=== PATIENT | male | born 1995 | race Caucasian/White ===

== ENCOUNTER 2018-10-04 23:07 | Emergency (ER) | payer OTHER ==
[~2018-10-04] VITALS: Ht 180.3 cm; Wt 59.0 kg
[2018-10-04 23:21] VITALS: BP 138/66
[2018-10-05] MEDS ORDERED: NAPROSYN500 MG PO (00:01)
[2018-10-05] MEDS ORDERED: NORFLEX100 MG PO (00:12)
--- NOTE | 2018-10-05 09:20 | EKG ---
[place] [address] [employer] [place] [address] ELECTROCARDIOGRAM REPORT Name: COLUMBA MARLOW [id number] Admission: 10/04/18 Attend Phys: Discharge: 10/05/18 Date of : [birth year] Report #: [id number] THIS REPORT FOR: //name// [facility] ED Test Date: 2018-10-04 Test Time: 23:32:37 Pat Name: COLUMBA MARLOW Department: Room: Gender: M Electric Plater: TK : 1995 Requested By: Alton Olsen Order Number: [id number] MD: Rob Finnegan Measurements Intervals [place] Rate: 71 P: 53 WI: 133 QRS: 54 QRSD: 93 T: 33 QT: 388 QTc: 422 Interpretive Statements Sinus rhythm ST elev, probable normal early repol pattern No previous ECG available for comparison Electronically Signed On 10-05-2018 9:20:42 PRESS HELPER by Rob Finnegan [email or web address] <ELECTRONICALLY SIGNED> By: Rob Finnegan MD, [facility] 10/05/18 0920 2332 2332 Rob Finnegan MD, FACC /EPI
== END 2018-10-05 00:20 | disposition home or self-care (01) ==
LOC: ER 23:07
DX: M94.0 Chondrocostal junction syndrome [Tietze] (principal); F17.210 Nicotine dependence, cigarettes, uncomplicated

== ENCOUNTER 2019-04-11 05:11 | Emergency (ER) | payer OTHER ==
[~2019-04-11] VITALS: Ht 180.3 cm; Wt 62.1 kg
[~2019-04-11 05:11] MED LIST: NAPROSYN500 MG PO; NORFLEX100 MG PO
[2019-04-11 06:13] LABS: ABSOLUTE NEUTROPHILS 1.6 thou/uL (1.4-8.2); BASOPHILS 0.7 % (0.0-2.0); HEMATOCRIT 41.9 % (42.0-52.0); HEMOGLOBIN 14.7 gm/dL (14.0-18.0); LYMPHOCYTES 54.9 % (24.0-44.0); MCH 29.3 pg (26.0-34.0); MCHC 35.1 g/dL (28.0-37.0); MCV 83.6 fL (80.0-100.0); PLATELET COUNT 249 thou/uL (150-400); POLYS 33.4 % (36.0-66.0); RBC 5.01 mil/uL (4.50-6.00); RDW 12.9 % (10.5-14.5); WBC 4.8 thou/uL (4.0-11.0)
[2019-04-11 06:21] LABS: ANION GAP 11 mmol/L (7-16); BUN 11 mg/dL (7-18); CALCIUM 9.3 mg/dL (8.5-10.1); CHLORIDE 101 mmol/L (98-107); CO2 27 mmol/L (21-32); CREATININE 0.9 mg/dL (0.7-1.3); GLUCOSE 94 mg/dL (74-106); POTASSIUM 3.4 mmol/L (3.5-5.1); SODIUM 139 mmol/L (136-145)
[2019-04-11 06:30] LABS: TROPONIN-I <0.06 ng/mL (<0.06)
[2019-04-11 07:01] VITALS: BP 112/79
--- NOTE | 2019-04-12 09:08 | EKG ---
[address] [address] ELECTROCARDIOGRAM REPORT Name: COLUMBA MARLOW Room #: [facility] ANNISTONY[facility] [id number] ������������������ Admission: 04/11/19 ������������������ Attend Phys: Discharge: 04/11/19 ������������������ Date of : [birth year] Report #: [id number] ����������������������������������������������������������������� [id number] THIS REPORT FOR: //name// [facility] ED Test Date: 2019-04-11 Test Time: 05:28:45 Pat Name: COLUMBA MARLOW Department: Room: Gender: M Ag Service Manager: JSHORT1 : 1995 Requested By: Richard Pollard Order Number: [id number] MD: Rob Finnegan Measurements Intervals [place] Rate: 64 P: 59 NC: 135 QRS: 51 QRSD: 106 T: 22 QT: 407 QTc: 420 Interpretive Statements Sinus rhythm ST elevation suggests early repolarization Compared to ECG 10/04/2018 23:32:37 No significant changes Electronically Signed On 04-12-2019 9:08:39 CDT by Rob Finengan [email or web address] ��������������������������������������������� <ELECTRONICALLY SIGNED> ���������������������������������������� By: Rob Finnegan MD, [facility] ��������������������������������������������� 04/12/19 0908 0528 7 Rob Finnegan MD, FACC /EPI
== END 2019-04-11 07:15 | disposition home or self-care (01) ==
LOC: ER 05:11
PROVIDERS: Emergency Medicine
DX: R07.89 Other chest pain (principal); E87.6 Hypokalemia; R42 Dizziness and giddiness; F17.210 Nicotine dependence, cigarettes, uncomplicated; Z79.899 Other long term (current) drug therapy

== ENCOUNTER 2019-05-10 11:59 | Emergency (ER) | payer OTHER ==
[~2019-05-10] VITALS: Ht 180.3 cm; Wt 61.7 kg
[2019-05-10 12:01] VITALS: BP 136/75
[2019-05-10] MEDS ORDERED: IBUPROFEN 600600 M1 PO (12:32)
== END 2019-05-10 12:55 | disposition home or self-care (01) ==
LOC: ER 11:59
DX: S93.401A Sprain of unspecified ligament of right ankle, initial encounter (principal); F17.210 Nicotine dependence, cigarettes, uncomplicated; W10.8XXA Fall (on) (from) other stairs and steps, initial encounter; Y93.89 Activity, other specified; Y92.89 Other specified places as the place of occurrence of the external cause; Y99.8 Other external cause status